=== PATIENT | female | born 1990 | race Caucasian/White ===

== ENCOUNTER 2017-10-12 13:00 | Outpatient (RCR) | payer OTHER, SELFPAY ==
--- NOTE | 2017-08-24 14:57 | HP.PTEVAL_ITS ---
Patient's Visit Information THOMAS PORRAS is a 26 year old F referred to Physical Therapy by Evelyne Turner with a diagnosis of Hip Strain. Date of Evaluation: 08/24/17 Physical Therapist: Victoria Little, PT - Visit Plan Frequency: 1x/Week Duration: 4 Weeks Plan: Therapeutic exercises and activities targeting BLE strength, endurance, balance and flexibility. Modalities and Manual as needed to decrease pain and increase range of motion. - Subjective Subjective: Patient presents in therapy with left leg pain that started in June while doing yoga. 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 She has a long history with her RLE injury that started when she was 14 resulting in calcified tissue in the hamstring area. She recently noticed decrease flexibility in her left as well as some weakness. States pain isnt so much during activities but hours to a day after. Pain worsens with leg lifting, yoga poses especially down dog and when leg is in extension with DF foot. To help relieve pain ice pack, CBD oil and tylenol to help relieve pain. No x-ray or mri was performed on the hip. No numbness or tingling down legs. PMHx: R hip chronic issues, low grade asthma. 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 - Pain left hip Pain Intensity (Out of 10): 5 Pain Intensity Range: 8 Comment: worsens after activity - Objective Posture: Sitting slouched in chair with feet flat on floor; Standing equal WB through BLE. Palpation: Tenderness to palpation along left medial hamstring, left ischial tuberosity, left glute area near PSIS. Alignment: R ASIS Posteriorly rotated compared to L ASIS; L ischial tuberosity more deep than R ischial tuberosity. Strength: BLE grossly 5/5 strength except left hip abduction 4/5, bilateral hip extension 4-/5, bilateral knee flexion 4/5; core grossly 4-/5 strength. Balance: B SLS 30 seconds with moderate ankle sway on the right and minimal ankle sway on the left. Range of Motion: WFL BLE with hypermobility with hip flexion; hip extension 70* bilaterally; knees 0-140*. Flexibility: Mild hamstring tightness -10* knee extension on the left and -5* knee extension on the right. Gait: Patient ambulating with heel/toe foot progression with equal WB through BLE slight hip drop on the left. Squatting: Patient displays moderate quad dominance with left knee popping with a squat. Displays fair eccentric quad control with medial buckling in bilaterally - Goals Goal 1:: Patient will increase BLE strength grossly 5/5 specifically hip extension, hip abduction and knee flexion for improved performance with functional activities. Goal Time Frame: 4-6 Weeks Goal 2:: Patient will perform 5 consecutive squats without pain using good form and good quad control Goal Time Frame: 4-6 Weeks Goal 3:: Patient will perform therapeutic exercises and activities without increasing hamstring/hip pain for 30 minutes Goal Time Frame: 4-6 Weeks Goal 4:: Patient will maintain neutral pelvic alignment for 2 consecutive sessions for improved mobility Goal Time Frame: 4-6 Weeks Goal 5:: Patient will increase hamstring flexibility on the left to match right hamstring flexibility for improved mobility. Goal Time Frame: 4-6 Weeks Goal 6:: Patient will demonstrate independence with HEP Goal Time Frame: 4-6 Weeks - Rehabilitation Potential Physical Therapy Diagnosis: Muscle Weakness, Impaired Mobility Rehabilitation Potential: Good - Anticipated Interventions Patient/Client Instruction: Educate patient on: Condition, Plan of Care For the Purpose of:: To decrease pain, To improve muscle performance and motor function, To improve ability of physical actions for home/community/work/leisure , To improve gait and locomotor functions, To increase flexibility/ROM, To improve endurance, To improve balance Therapeutic Exercise to Include: Strength training, Endurance training, Balance training, Body mechanics, Postural training, Flexibilty training, Gait and locomotor training, Passive ROM, Active ROM For the Purpose of:: To increase ROM, To improve muscle performance and motor function, To decrease level of supervision to perform tasks, To improve gait and locomotor functions, To increase flexibility/ROM, To improve endurance, To improve balance, To prevent re-injury Functional Training to Include: ADL Training, Functional sports training For the Purpose of:: To improve muscle performance and motor function, To improve performance and independence with ADL's, To improve ability of physical actions for home/community/work/leisure, To prevent re-injury Comment: massage not covered by insurance For the Purpose of:: To decrease pain, To increase ROM, To increase flexibility/ ROM Iontophoresis (with Dexamethozone, with Acetic acid): No For the Purpose of:: To decrease pain, To increase ROM, To increase flexibility/ ROM Thank you for the opportunity to evaluate your patient. For Medicare and Medicare O plans, please review the plan of care and approve it. It will need to be FAXED BACK to us at [phone] for Medicare purposes. Please let me know if there are questions or concerns regarding this plan of care. Physician Signature: Date:
--- NOTE | 2017-12-17 08:29 | HP.PTDCNRP_ITS ---
HP - Discharge Summary (1) - Patient Information THOMAS PORRAS was seen in my office for initial evaluation on 08/24/17. The following Plan of Care was established for this patient: Initial Frequency: 1x/Week Initial Duration: 4 Weeks - Anticipated Interventions Patient/Client Instruction: Educate patient on: Condition, Plan of Care For the Purpose of:: To decrease pain, To improve muscle performance and motor function, To improve ability of physical actions for home/community/work/leisure, To improve gait and locomotor functions, To increase flexibility/ROM, To improve endurance, To improve balance Therapeutic Exercise to Include: Strength training, Endurance training, Balance training, Body mechanics, Postural training, Flexibilty training, Gait and locomotor training, Passive ROM, Active ROM For the Purpose of:: To increase ROM, To improve muscle performance and motor function, To decrease level of supervision to perform tasks, To improve gait and locomotor functions, To increase flexibility/ROM, To improve endurance, To improve balance, To prevent re-injury Functional Training to Include: ADL Training, Functional sports training For the Purpose of:: To improve muscle performance and motor function, To improve performance and independence with ADL's, To improve ability of physical actions for home/community/work/leisure, To prevent re-injury Comment: massage not covered by insurance For the Purpose of:: To decrease pain, To increase ROM, To increase flexibility/ROM Iontophoresis (with Dexamethozone, with Acetic acid): No For the Purpose of:: To decrease pain, To increase ROM, To increase f lexibility/ROM This patient was last seen in our office 10/12/17. Pertinent comments regarding their Physical therapy will appear below: Pt. was seen in PT for her hip pain. Pt. progressed well with DN and eccentric strengthening. Pt. has to take a break from PT as she was recovering from illness. I contacted her via phone and she reported that she is doing well and no longer needed PT. Pt. will be DC from PT at this point in time. At this point I will be discontinuing this patient from physical therapy. I would be happy to see this patient again in the future if found appropriate by the physician. Thank you! Paul Morrison
== END 2017-10-12 19:00 | disposition home or self-care (01) ==
LOC: PT 13:00
PROVIDERS: Family Provider Internal Medicine; PCP Internal Medicine; Visit Provider Nurse Practitioner
DX: S73.199D Other sprain of unspecified hip, subsequent encounter (principal)
CPT/HCPCS: 97035; 97110; 97140; 97161

== ENCOUNTER 2017-10-12 18:33 | Emergency (ER) | payer OTHER, SELFPAY ==
[2017-10-12 18:34] VITALS: BP 138/93; PULSE 91; RESP 16; TEMP 36.4; O2SAT 98; BMI 23.5
[2017-10-12] MEDS: Ondansetron 4 MG/2 ML Vial IV (19:20)
[2017-10-12] MEDS: Morphine 4 MG/ML Syringe IV (19:20)
[2017-10-12] MEDS: 0.9% Normal Saline 1,000 ML 250 ML IV (19:20)
[2017-10-12] MEDS: HYDROmorphone 1 MG/ML Syringe IV (19:42)
[2017-10-12 19:50] LABS: Anion Gap 10 (5-15); BUN 12 mg/dL (7-18); BUN/Creat Ratio 13.7 RATIO (10-20); Calcium,Total 8.9 mg/dL (8.5-10.1); Chloride 108 mmol/L (98-107); Creatinine, Serum 0.88 mg/dL (0.55-1.02); EST Glomerular Filtration Rate 83 mL/min (>60); Est Glom Filt Rate - Afr Amer 101 mL/min (>60); Estimated Creatinine Clearance 95.03 ml/min; Glucose 96 mg/dL (74-106); Potassium 3.5 mmol/L (3.5-5.1); Sodium Level 141 mmol/L (136-145)
[2017-10-12 19:57] LABS: Pregnancy, Serum, hCG Quali. NEGATIVE Negative (0-9 Nonpreg)
[2017-10-12 20:07] LABS: Absolute Lymphocyte Count 2.91 X10^3/ul (0.83-4.51); Absolute Neutrophil Count 6.5 X10^3/uL (2.0-7.7); Basophil# 0.01 X10^3/uL; Basophil% 0.1 % (0-1); Eosinophil# 0.16 X10^3/uL; Eosinophils% 1.6 % (0-5); Hematocrit 40.8 % (37-47); Hemoglobin 13.4 g/dl (12.0-15.0); Lymphocyte # 2.91 X10^3/ul (4.0); Lymphocyte % 29.1 % (19-41); Mean Corp Hgb Conc 32.8 g/gl (32-36); Mean Corpuscular Hgb 30.3 pg (27.0-32.0); Mean Corpuscular Volume 92.3 fL (81-99); Mean Platelet Vol. 9.7 fl (6.2-12.0); Monocyte# 0.47 X10^3/uL; Monocyte% 4.7 % (0-10); Neutrophil # 6.45 X10^3/uL (2.7-7.7); Neutrophil % 64.4 % (47-70); POSITIVE COUNT NO; POSITIVE DIFFERENTIAL NO; POSITIVE MORPHOLOGY NO; Platelet Count 296 K/mm3 (150-450); RBC Distribution Width CV 12.2 % (11.6-14.6); RBC Distribution Width SD 41.6 fl (35.1-43.9); Red Blood Count 4.42 M/mm3 (4.2-5.4)
[2017-10-12 20:18] LABS: Bacteria 0 SEEN /hpf (None Seen); Mucous, Urine 0 SEEN /hpf (<or=2+)
[2017-10-12 20:27] LABS: Color, Urine Yellow (Yellow); Glucose, Dipstick Normal (Normal); Ketone-Dipstick Negative (Negative); Leukocyte Esterase-Dipstick 25 /ul (Negative); Nitrite-Dipstick Negative (Negative); Occult Blood-Urine 250 /ul (Negative); Protein-Dipstick 15 mg/dl (Negative); Urine Bilirubin Dipstick Negative (Negative); Urine Clarity Sl. Cloudy (Clear); Urine Urobilinogen Normal (Normal); Urine pH 6.5 (5.0 - 8.0)
[2017-10-12] MEDS: HYDROmorphone 0.5 MG/0.5 ML SYRINGE IV (20:31)
[2017-10-12 20:35] VITALS: BP 127/86; PULSE 66; RESP 16; O2SAT 99
[2017-10-12 20:40] LABS: Amorphous Sediment 1+ URATE; Red Blood Cells-Urine 25-50 SEEN /hpf (0-5); Squamous Epithelial Cells - UA 0-5 SEEN /hpf (5-10); White Blood Cells 0-5 SEEN /hpf (0-5)
--- NOTE | 2017-10-12 20:47 | ED.VISSUMM ---
- ER Visit Summary Date of Service: 10/12/17 Chief Complaint: Right flank pain History of Present Illness: The patient is a 26 F presenting with right flank pain. Shes states this started suddenly early today. She has nausea and subjective fever. She denies vomiting. History of previous kidney stones. Denies other complaints. Physical Examination: Vitals are stable. Patient is afebrile. Alert no acute distress. HEENT exam is unremarkable. Neck is supple. Lungs are clear and equal bilaterally. Heart is regular rate and rhythm. Abdomen is soft nontender nondistended. No guarding or rebound Back right cva tenderness Extremities are unremarkable. Skin is warm and dry. Remainder of exam is unremarkable. Emergency Department Course and Treatment: Patient is given morphine, Zofran, IV fluids. She continues to have significant pain was given a dose of Dilaudid IV with improvement. CBC, chemistries unremarkable. Urinalysis shows 0-5 white blood cells, 25-50 red blood cells. HCG negative. CT abdomen pelvis shows hydronephrosis of the right kidney with right hydroureter. There is a nonobstructive 2 to 3 mm stone in the distal right ureter just proximal to the UVJ level. On reevaluation, patient is resting comfortably. She is given a prescription for Percocet. She is advised to follow-up with Dr. Laureano. Advised return ED for worsening complaints. Disposition: Discharge home Impression: Urolithiasis This note was generated with [employer] dictation software. It may contain incorrect words, spelling, and punctuation that were not noted in review of the chart prior to signing ED Disposition - Plan for ED Patient: Chief Complaint: Flank Pain Referrals: Oly Akins DO [Primary Care Provider] -
--- NOTE | 2017-10-12 21:42 | ED.DEP ---
ED Disposition - Plan for ED Patient: Chief Complaint: Flank Pain Instructions: ED Stone Renal W Colic Prescriptions: Oxycodone HCl/Acetaminophen [Percocet 5/325] 1 tablet PO Q6H PRN PRN 3 Days #8 tablet PRN Reason: Pain Referrals: Oly Akins DO [Primary Care Provider] - Gabriel Laureano MD [STAFF PHYSICIAN] -
[2017-10-12 22:03] VITALS: BP 135/70; PULSE 75; RESP 14; O2SAT 98
[2017-10-12 22:04] VITALS: BP 135/70; PULSE 85; RESP 14; O2SAT 99
[2017-10-12] MEDS: oxyCODONE 5 MG Tablet PO (22:06)
== END 2017-10-12 22:07 | disposition home or self-care (01) ==
PROVIDERS: Emergency Provider Emergency Medicine; Family Provider Internal Medicine; PCP Internal Medicine
DX: N13.2 Hydronephrosis with renal and ureteral calculous obstruction (principal); Z87.442 Personal history of urinary calculi
CPT/HCPCS: 74176; 80048; 81001; 84703; 85025; 96361; 96374; 96375; 99283; J7030; A4216; J2405

== ENCOUNTER 2017-10-13 17:59 | Observation (INO) | payer OTHER, SELFPAY ==
[2017-10-13 18:37] VITALS: BP 119/78; PULSE 78; RESP 18; TEMP 36.7; O2SAT 96; BMI 54.2
[2017-10-13] MEDS: Dext 5%-0.45% NS 1,000 ML 150 ML IV (18:44)
[2017-10-13] MEDS: Morphine 2 MG/ML Syringe IV ×2 (18:46→19:39)
[2017-10-13] MEDS: Ketorolac 30 MG/ML Syringe IV (18:46)
[2017-10-13 18:53] VITALS: BMI 54.2
[2017-10-13 19:01] VITALS: BMI 23.5
[2017-10-13] MEDS: 0.9% NaCl Peripheral Flush Adult/Peds IV ×2 (19:39→22:56)
[2017-10-13] MEDS: Tamsulosin HCl 0.4 MG Capsule PO (19:53)
[2017-10-13] MEDS: oxyCODONE 5 MG Tablet PO (21:40)
[2017-10-13] MEDS: Morphine 4 MG/ML Syringe IV (22:55)
--- NOTE | 2017-10-13 22:55 | PCM.HP.STD ---
Problem List (1) Ureteral calculus, right Status: Acute (2) Renal colic on right side Status: Acute History of Present Illness Date of Admission: 10/13/17 The patient is a 26 year old F [with a history of urolithiasis in the past. She developed acute onset right lower abdominal pain associated with nausea and vomiting. She was seen in the emergency room yesterday. She was given morphine and oral pain control which did not last very long. 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 She denies fevers or chills. She has had one surgical intervention for a stone several years ago that did require a stent insertion.] Past Medical History Allergies Latex, Natural Rubber Allergy (Verified 10/12/17 18:35) Rash Penicillins Allergy (Verified 10/12/17 18:35) Hives Home Medications: Ambulatory Orders Medication Instructions Recorded Dextroamphetamine/Amphetamine 1 tab PO DAILY 11/20/16 [Dextroamp-Amphet ER 30 mg Cap] Oxycodone HCl/Acetaminophen 1 tablet PO Q6H PRN PRN 3 Days #8 10/12/17 [Percocet 5/325] tablet Etonogestrel/Ethinyl Estradiol 10/13/17 [Nuvaring Vaginal Ring] STUDENT RECORDS SPECIALIST History: No pertinent STUDENT RECORDS SPECIALIST history Smoking Status: Light Smoker (<10/day) Review of Systems Constitutional: Denies: Chills, Fever Gastrointestinal: Reports: Abdominal Pain, Constipation, Nausea, Vomiting Genitourinary: Reports: Hesitancy, Urgency VTE Information - Inpt Only VTE Present on Admission: No VTE Mechan Device Prophylaxis: None VTE Pharm Prophylaxis ordered?: No Reason prophylaxis not ordered:: Treatment Not Indicated - patient is ambulatory, no history of clotting disorders Patient Problems: Active and Suspected Problems Ureteral calculus, right (Acute) Renal colic on right side (Acute) - Physical Exam General: Alert, Oriented x3, - - moderate distress due to pain. 3 hours since IV pain medication given. HEENT: Atraumatic, Normocephalic Oral: Dry Mucosa Neck: Supple Lungs: Normal air movement Cardiovascular: Regular rate Abdomen: Soft, Non-Distended, Tender - tender specifically in right lower quadrant and right flank. Skin: No rashes Musculoskeletal: No Muscle Wasting Neurological: Cranial nerves II-XII grossly intact, Neuro grossly intact Psych/Mental Status: Appropriate, Anxious, Alert and oriented to time, place, person, mood and affect Vital Signs Temp Pulse Resp BP Pulse Ox 98.1 F 78 18 119/78 96 10/13/17 18:37 10/13/17 18:37 10/13/17 18:37 10/13/17 18:37 10/13/17 18:37 Oxygen Delivery Method Room Air Weight: 68.096 kg Body Mass Index (BMI) 23.5 Assessment/Plan All Active Problems Ureteral calculus, right (Acute) Renal colic on right side (Acute) Good chance of passing stone without intervention. She would like to avoid a procedure, has had a stent in the past. IVF hydration, pain control, flomax Continue supportive care.
[2017-10-14] MEDS: Dext 5%-0.45% NS 1,000 ML 150 ML IV ×3 (01:22→15:09)
[2017-10-14 01:49] VITALS: BP 106/78; PULSE 62; RESP 16; TEMP 36.5; O2SAT 98
[2017-10-14] MEDS: Morphine 4 MG/ML Syringe IV ×2 (02:10→12:14)
[2017-10-14] MEDS: 0.9% NaCl Peripheral Flush Adult/Peds IV ×4 (02:10→12:13)
[2017-10-14] MEDS: Ketorolac 30 MG/ML Syringe IV ×2 (03:43→11:29)
[2017-10-14 08:31] VITALS: BP 94/59; PULSE 68; RESP 18; TEMP 36.8; O2SAT 95
[2017-10-14] MEDS: Morphine 2 MG/ML Syringe IV (09:05)
[2017-10-14 12:13] VITALS: BP 109/69; PULSE 69
[2017-10-14 14:01] VITALS: BP 101/63; PULSE 72; RESP 18; TEMP 37.2; O2SAT 97
--- NOTE | 2017-10-14 18:08 | PCM.DC.SUM ---
Discharge Date and Diagnosis - Problem List Patient Problems: Active and Suspected Problems Ureteral calculus, right (Acute) Renal colic on right side (Acute) Date of Admission: 10/13/17 Date of Discharge: 10/14/17 - Primary Discharge Diagnosis Active and Suspected Problems Ureteral calculus, right (Acute) Renal colic on right side (Acute) Hospital Course and Treatment Operations: None Procedures: None Summary of Care Provided: The patient is a 26 year old F [with a right distal ureteral calculus admitted for pain control. She remained stable throughout the night, tolerated PO intake, voided without an issue, and desired to have a trial of passage at home. She was discharged home in good condition with instructions for follow up in the office.] Discharge Diet: No Restrictions Discharge Activity: May not drive while taking narcotic pain medications. Home Medications: Medications to take at Discharge Dextroamphetamine/Amphetamine [Dextroamp-Amphet ER 30 mg Cap] 1 tab PO DAILY 11/20/16 Oxycodone HCl/Acetaminophen [Percocet 5/325] 1 tablet PO Q6H PRN PRN 3 Days #8 tablet 10/12/17 Etonogestrel/Ethinyl Estradiol [Nuvaring Vaginal Ring] 10/13/17 Primary Care Physician: Oly Akins DO [Primary Care Provider] - Medical Necessity - Tobacco Use Smoking Status: Light Smoker (<10/day) Meaningful Use Info Meaningful Use Diagnoses (Choose all that apply): None applicable
--- NOTE | 2017-10-14 18:11 | PCM.DC.URO ---
Discharge Diet: No Restrictions, No Fluid Restriciton Discharge Activity: May not drive while taking narcotic pain medications. Call your doctor if you observe: Fever of 101 or Higher, Inability to urinate, Uncontrolled pain Allergies/Adverse Reactions: Allergies Latex, Natural Rubber Allergy (Verified 10/12/17 18:35) Rash Penicillins Allergy (Verified 10/12/17 18:35) Hives Medications to take at Discharge Dextroamphetamine/Amphetamine [Dextroamp-Amphet ER 30 mg Cap] 1 tab PO DAILY 11/20/16 Oxycodone HCl/Acetaminophen [Percocet 5/325] 1 tablet PO Q6H PRN PRN 3 Days #8 tablet 10/12/17 Etonogestrel/Ethinyl Estradiol [Nuvaring Vaginal Ring] 10/13/17 Primary Care Physician: Oly Akins DO [Primary Care Provider] - Test Results: Test results from this visit will be discussed in further detail at your follow-up appointment, if applicable. Please Follow Up With: Ayesha Osei MD When: 1 week Proposed Discharge Date: 10/14/17
[2017-10-14] MEDS: Tamsulosin HCl 0.4 MG Capsule PO (18:16)
--- NOTE | 2017-10-14 18:17 | PCM.PN.GU ---
Physical Exam Subjective: Sitting up in bed, ate all of her macaroni for dinner. Pain improved, wanting to go home for trial of passage. Voided 900cc clear yellow. - Physical Exam Vital Signs Temp 98.9 F 10/14/17 14:01 Pulse 72 10/14/17 14:01 Resp 18 10/14/17 14:01 BP 101/63 10/14/17 14:01 Pulse Ox 97 10/14/17 14:01 Intake & Output 10/12/17 10/13/17 10/14/17 23:59 23:59 23:59 Intake Total 2130 / 2130 Output Total 800 / 800 Balance 1330 / 1330 Weight: 68.096 kg Intake: Oral 500 / 500 IV fluid/meds 1630 / 1630 Output: Urine 800 / 800 General: Alert, Oriented x3, No apparent distress HEENT: Atraumatic, Normocephalic Oral: Moist Mucosa Neck: Supple Lungs: Normal air movement Cardiovascular: Regular rate Abdomen: Soft, Non Tender Rectal: Exam deferred Extremities: No edema, No Calf Tenderness Skin: No rashes Musculoskeletal: No Muscle Wasting Neurological: Cranial nerves II-XII grossly intact, Neuro grossly intact Psych/Mental Status: Normal Affect, Appropriate Medical Necessity - Tobacco Use Smoking Status: Light Smoker (<10/day) Assessment/Plan All Active Problems Ureteral calculus, right (Acute) Renal colic on right side (Acute) Home today with oral pain control. Follow up in office next week.
[2017-10-14 18:19] VITALS: BP 95/60; PULSE 67; RESP 16; TEMP 37.2; O2SAT 95
== END 2017-10-14 18:43 | disposition home or self-care (01) ==
PROVIDERS: Admitting Provider Urology; Family Provider Internal Medicine; PCP Internal Medicine; Visit Provider Urology
DX: N20.1 Calculus of ureter (principal); F17.200 Nicotine dependence, unspecified, uncomplicated
CPT/HCPCS: 87086; 96361; 96374; 96375; 96376; 99218; 99406; A4216; G0378; G0379; J7799

== ENCOUNTER 2017-10-19 08:18 | Day surgery (SDC) | payer OTHER, SELFPAY ==
[2017-10-19 08:43] LABS: Internal QC Validated? YES +Cl - CLEAR BKGD; Pregnancy, Urine Negative Negative
[2017-10-19 08:45] VITALS: BP 115/67; PULSE 71; RESP 16; TEMP 36.6; O2SAT 98; BMI 24.5
[2017-10-19] MEDS: Ciprofloxacin 400 MG/200 ML BAG 200 MG IV (09:20)
--- NOTE | 2017-10-19 10:36 | PCM.DC.URO ---
Discharge Diet: No Restrictions Discharge Activity: May not drive while taking narcotic pain medications., May Shower Call your doctor if you observe: Fever of 101 or Higher, Inability to urinate, Inability to have a bowel movement, Shortness of breath, Chest pain, Calf discomfort, Uncontrolled pain Allergies/Adverse Reactions: Allergies amoxicillin Allergy (Verified 10/18/17 10:34) Hives Latex, Natural Rubber Allergy (Verified 10/18/17 10:34) Rash Penicillins Allergy (Verified 10/18/17 10:34) Hives Medications to take at Discharge Dextroamphetamine/Amphetamine [Dextroamp-Amphet ER 30 mg Cap] 1 tab PO DAILY 11/20/16 Etonogestrel/Ethinyl Estradiol [Nuvaring Vaginal Ring] 1 VAGINAL UD 10/13/17 Oxycodone HCl/Acetaminophen [Percocet 5-325] 1 - 2 tab PO Q6H PRN PRN 7 Days #30 tab 10/14/17 Primary Care Physician: Oly Akins DO [Primary Care Provider] - Test Results: Test results from this visit will be discussed in further detail at your follow-up appointment, if applicable. Please Follow Up With: Ayesha Osei MD When: 2-3 weeks Proposed Discharge Date: 10/19/17
[2017-10-19 11:38] VITALS: BP 115/67; BP 130/89; PULSE 105; RESP 16; TEMP 36.5; O2SAT 100
[2017-10-19 11:43] VITALS: BP 115/67; BP 121/84; PULSE 85; RESP 14; O2SAT 100
--- NOTE | 2017-10-19 11:44 | PCM.IMDPSTOP ---
Immediate Post-Op Note Date of Procedure: 10/19/17 Primary Surgeon/Physician: Ayesha Osei MD stress analyst: Ayesha Osei Pre-Operative Diagnosis: right distal ureteral calculus Post-Operative Diagnosis: same Surgery/Procedure Performed:: cystoscopy, right ureteroscopy, stone removal, right ureteral stent insertion. Description of Surgical Findings:: distal right ureteral stone with hydronephrosis. Estimated Blood Loss: 3cc Specimen's removed: stone Type of Anesthesia:: General - Admit VTE Documentation VTE Present on Admission: Yes VTE Mechan Device Prophylaxis: SCD's VTE Pharm Prophylaxis ordered?: No Reason prophylaxis not ordered:: Treatment Not Indicated
--- NOTE | 2017-10-19 11:46 | PCM.OPRPT ---
Problem List (1) Ureteral calculus, right Status: Acute Report of Operation Date of Procedure: 10/19/17 Pre-Operative Diagnosis: right distal ureteral calculus Post-Operative Diagnosis: same Surgery/Procedure Performed:: cystoscopy, right ureteroscopy, stone removal, right ureteral stent insertion. Description of Surgical Findings:: distal right ureteral stone with hydronephrosis. education diagnostician: Ayesha Osei Type of Anesthesia:: General Specimen's removed: stone Estimated Blood Loss (mL): 3cc Description of Procedure: Patient is a 26-year-old female who was admitted to the hospital for pain control due to a right distal ureteral calculus. After being discharged home the pain continued and she was added on for surgical intervention. All risks benefits and alternatives were discussed with the patient preoperatively and she agreed to proceed. The patient was taken to the operating room and placed on the operating room table. Anesthesia monitored the head neck and airway, vital signs and IV access throughout the case. Once anesthesia was appropriately administered the patient was placed into dorsal lithotomy position and was prepped and draped in usual sterile fashion. A cystourethroscopy revealed no abnormalities of the bladder or urethra. At this time the right ureteral orifice was intubated with an 8 Welsh cone-tip catheter and under fluoroscopic visualization a stone was identified in the right distal ureter. At this time a 0.035 Glidewire was passed alongside the stone into the renal pelvis and a profuse amount of clear urine rushed into the urinary bladder. I was unable to access the stone using a semirigid ureteroscope, and using 2 Glidewire and the flexible ureteroscope over the 0.035 Glidewire access was obtained to the ureter proximal to the stone. Upon pulling back the scope to visualize the stone, the stone was pulled into the urinary bladder. Using the basket, the stone was grasped, and removed and sent for analysis. A 6 Welsh 24 cm stent with this during intact was then passed over the Glidewire which was then removed. The patient tolerated the procedure well and there were no complications. She was awakened and taken to the recovery room in good condition. Grafts/Implants Used: right ureteral stent - Complications none - Admit VTE Documentation VTE Present on Admission: Yes VTE Mechan Device Prophylaxis: SCD's VTE Pharm Prophylaxis ordered?: No Reason prophylaxis not ordered:: Treatment Not Indicated
[2017-10-19 11:49] VITALS: BP 115/67; BP 126/84; PULSE 90; RESP 14; O2SAT 100
[2017-10-19 11:50] VITALS: BP 115/67; BP 128/84; PULSE 90; RESP 14; TEMP 36.4; O2SAT 100
[2017-10-19 13:00] VITALS: BP 115/67
[2017-10-27 20:07] LABS: Ca Oxalate, Dihydrate 20 % (.); Ca Oxalate, Monohydrate 77 % (.); Size 2x1x1 mm (.)
[2017-10-28 11:47] LABS: Comment Note: (.)
== END 2017-10-19 13:20 | disposition home or self-care (01) ==
LOC: SDC 08:19 → AC 08:20
PROVIDERS: Anesthesiology; Family Provider Internal Medicine; PCP Internal Medicine; Visit Provider Urology
PROC: 0TJ98ZZ Inspection of Ureter, Via Natural or Artificial Opening Endoscopic (ICD-10-PCS; CPT 52352; principal; 2017-10-19 10:00)
DX: N13.2 Hydronephrosis with renal and ureteral calculous obstruction (principal); J45.909 Unspecified asthma, uncomplicated; F17.200 Nicotine dependence, unspecified, uncomplicated
CPT/HCPCS: 52320; 52332; 76000; 81025; 82360; J7120; C1769; C2617; J0744; J2405

== ENCOUNTER → 2018-06-23 | Outpatient (CLI) | payer OTHER, SELFPAY ==
[2018-06-27 16:08] LABS: Endomysial Antibody IgA Negative (Negative)
[2018-06-28 17:21] LABS: Immunoglobulin A 215 mg/dL (87-352); t-Transglutaminase IgA <2 U/mL (0-3)
[2018-07-05 16:07] LABS: Almond <0.10 kU/L (Class 0); Banana <0.10 kU/L (Class 0); Barley, Whole Grain <0.10 kU/L (Class 0); Beef <0.10 kU/L (Class 0); Carrot <0.10 kU/L (Class 0); Casein <0.10 kU/L (Class 0); Cashew <0.10 kU/L (Class 0); Celery <0.10 kU/L (Class 0); Cheddar Cheese <0.10 kU/L (Class 0); Chicken <0.10 kU/L (Class 0); Chocolate <0.10 kU/L (Class 0); Clam <0.10 kU/L (Class 0); Codfish <0.10 kU/L (Class 0); Corn <0.10 kU/L (Class 0); Crab <0.10 kU/L (Class 0); Egg, White <0.10 kU/L (Class 0); Egg, Whole <0.10 kU/L (Class 0); Egg, Yolk <0.10 kU/L (Class 0); Garlic <0.10 kU/L (Class 0); Gluten <0.10 kU/L (Class 0); Hazelnut/Filbert <0.10 kU/L (Class 0); Lettuce <0.10 kU/L (Class 0); Lobster <0.10 kU/L (Class 0); Milk (Cow) <0.10 kU/L (Class 0); Oat <0.10 kU/L (Class 0); Onion <0.10 kU/L (Class 0); Orange <0.10 kU/L (Class 0); Pea <0.10 kU/L (Class 0); Peach <0.10 kU/L (Class 0); Pecan <0.10 kU/L (Class 0); Pork <0.10 kU/L (Class 0); Potato, White <0.10 kU/L (Class 0); Rice <0.10 kU/L (Class 0); Rye <0.10 kU/L (Class 0); Salmon <0.10 kU/L (Class 0); Shrimp <0.10 kU/L (Class 0); Soybean <0.10 kU/L (Class 0); Strawberry <0.10 kU/L (Class 0); Tomato <0.10 kU/L (Class 0); Tuna <0.10 kU/L (Class 0); Walnut, (Food) <0.10 kU/L (Class 0); Wheat <0.10 kU/L (Class 0); Yeast <0.10 kU/L (Class 0)
[2018-07-06 13:35] LABS: Apple <0.10 kU/L (Class 0); Lactalbumin, Alpha <0.10 kU/L (Class 0); Peanut <0.10 kU/L (Class 0); Turkey <0.10 kU/L (Class 0)
== END | disposition home or self-care (01) ==
PROVIDERS: Family Provider Family Medicine; PCP Family Medicine; Visit Provider Family Medicine
DX: L50.9 Urticaria, unspecified (principal); R14.0 Abdominal distension (gaseous); Z91.018 Allergy to other foods
CPT/HCPCS: 36415; 82784; 83516; 86003; 86255